=== PATIENT | male | born 2000 | race Caucasian/White ===

== ENCOUNTER 2019-10-29 16:25 | Emergency (ER) | payer SELFPAY ==
--- NOTE | 2019-10-29 16:51 | Emergency Department Report ---
Chief Complaint: Wound/Laceration Stated Complaint: LFT FINGER CUT/PAIN Time Seen by Provider: 10/29/19 16:48 - HPI History of Present Illness: pt cut hand on tv last night 9approx 24 hours ago) bled for about 3 hours - ROS Review of Systems: all systems reviewed and negative - Exam Physical Exam: 1 inch lac no longer bleeding on the dorsum on left hand just prox to 3rd MCP joint, no tendon exposure MSE screening note: Focused history and physical exam performed. Due to findings the following was ordered: ED Medical Decision Making - Medical Decision Making lac too old to be closed dc with wound care info ED Disposition for MSE Clinical Impression: Laceration Disposition: MED SCREENING EXAM-LEFT Is pt being admited?: No Does the pt Need Aspirin: No Condition: Stable Instructions: Laceration (ED) Time of Disposition: 16:58
== END 2019-10-29 16:50 | disposition left against medical advice (07) ==
LOC: ED 16:25
DX: S61.412A Laceration without foreign body of left hand, initial encounter (principal); W45.8XXA Other foreign body or object entering through skin, initial encounter; Y93.89 Activity, other specified; Y92.89 Other specified places as the place of occurrence of the external cause; Y99.8 Other external cause status
CPT/HCPCS: 99281; 99282